=== PATIENT | male | born 1955 | race Two or more races ===

== ENCOUNTER 2020-03-30 13:00 | Emergency (ER) | payer OTHER, SELFPAY ==
[2020-03-30 13:18] VITALS: BP 184/87; PULSE 66; RESP 16; TEMP 36.6; O2SAT 95; BMI 24.3
--- NOTE | 2020-03-30 13:25 | XR_ITS ---
PROCEDURE: XR LUMBAR SPINE 2-3V CLINICAL INDICATION: Pain COMPARISON: No exams were available for comparison FINDINGS: There is normal alignment. Mild multilevel lumbar spondylosis is noted with small anterior osteophytes. There is mild wedging of L4 and minimal wedging of L3. The disc spaces are well preserved. Endplate osteophytes are present at L1-L2 L3 and L4. IMPRESSION: Multilevel lumbar spondylosis. There is mild wedging of L3 and L4 age indeterminate without obvious retropulsion. Dictated by: J Carlos Maldonado MD 03/30/2020 14:30 J Carlos Maldonado MD in [place] 03/30/2020 14:30
--- NOTE | 2020-03-30 13:26 | XR_ITS ---
PROCEDURE: XR THORACIC SPINE 2V CLINICAL INDICATION: Pain COMPARISON: No exams were available for comparison FINDINGS: There is minimal loss of height of the right aspect of T5 and the left aspect of T6 and the right aspect of T8 as seen on the frontal view. Anterior osteophytes are present at T11-T12 and L1. There is slight decrease in height anteriorly at T5 and T6. No lytic or blastic change. Other findings:There is mild degenerative disc disease IMPRESSION: Degenerative changes with slight decrease in height in several areas of the vertebral bodies which is age indeterminate and may be better evaluated with MRI if clinically warranted. No retropulsion or lytic or blastic change. Dictated by: JC arlos Maldonado MD 03/30/2020 14:26 J Carlos Maldonado MD in [place] 03/30/2020 14:26
--- NOTE | 2020-03-30 13:27 | XR_ITS ---
PROCEDURE: XR SACRUM COCCYX MIN 2V CLINICAL INDICATION: Pain COMPARISON: No exams were available for comparison FINDINGS: There is mild dorsal subluxation the 3rd segment the coccyx by proximally 3 mm. There is degenerative disc disease at L5-S1. Sacrum has an unremarkable appearance as do the SI joints. IMPRESSION: Mild dorsal subluxation of the 3rd segment of the coccyx age indeterminate otherwise negative Dictated by: J Carlos Maldonado MD 03/30/2020 14:22 J Carlos Maldonado MD in [place] 03/30/2020 14:22
--- NOTE | 2020-03-30 15:08 | HMH.EDGENADL ---
ED Disposition Clinical Impression: Lower abdominal pain Low back pain Qualifiers: Chronicity: unspecified Back pain laterality: bilateral Sciatica presence: without sciatica Qualified Code(s): M54.5 - Low back pain Disposition: Home, Self-Care Condition on Discharge: Good Instructions: DI for Low Back Pain, DI for Abdominal Pain-Adult Additional Instructions: Your liver enzymes are elevated. You should follow-up with your primary care doctor about this. Do not take Tylenol (acetaminophen). Avoid alcohol. On your x-rays of your back, you have vertebral bones and discs that have collapsed over time as well as arthritis. You should follow-up with your primary care doctor for this. They can do further evaluation such as an MRI. Prednisone as prescribed. Ibuprofen as prescribed for pain. You are being provided with a list of physicians available for follow-up of your condition. Please call a physician on this list to arrange a follow-up appointment as soon as possible. Additional instructions for BACK PAIN: See your physician as soon as possible for further evaluation. Return immediately if back pain becomes intolerable, or if fever, numbness or weakness of your legs, loss of control of your bowels or bladder. Additional instructions for ABDOMINAL PAIN: See your physician as soon as possible for further evaluation. Return immediately if worsening abdominal pain, vomiting, shortness of breath, fever, vomiting of blood or abdominal distention. Prescriptions: Ibuprofen [Ibuprofen 600mg Tab] 600 mg PO Q6HP PRN #20 tab PRN Reason: Moderate Pain Prescription Printed predniSONE [Prednisone 20mg Tab] 20 mg PO BID #10 tab Prescription Printed Referrals: PCP,No [Primary Care Provider] - - Critical Care Critical Care Time: No Attestation: On 03/30/20, the high probability of a clinically significant, sudden or life threatening deterioration of the following system(s) required my full and direct attention, intervention and personal management. The time I documented below is in addition to time spent performing reported procedures but includes the following listed in this critical care notation. Medical Decision Making - Tyler Inquiry Pt receiving controlled substance: No Vital Signs: 03/30/20 13:18 Temperature 98 F Temperature Source Oral Pulse Rate [Right Brachial] 66 Respiratory Rate 16 Blood Pressure [Right Arm] 184/87 H Blood Pressure Mean [Right Arm] 119 Blood Pressure Source [Right Arm] Automatic Cuff Blood Pressure Position [Right Arm] Sitting 02 Sat by Pulse Oximetry 95 Oxygen Delivery Method Room Air - Lab Data Lab results reviewed: Yes: I reviewed the patient's lab results. Lab Results 03/30/20 15:00: Urine Color Yellow, Urine Appearance Clear, Urine pH 6.0, Ur Specific [place] 1.025, Urine Protein Negative, Urine Glucose (UA) Negative, Urine Ketones Negative, Urine Blood Negative, Urine Nitrate Negative, Urine Bilirubin Negative, Urine Urobilinogen 0.2, Ur Leukocyte Esterase Negative, Urine RBC 3-5, Urine WBC 5-10, Ur Squamous Epith Cells 5-10, Urine Bacteria 2+, Hyaline Casts 3-5, Urine Mucus 2+ 03/30/20 15:20: WBC 11.9 H, RBC 4.81, Hgb 14.8, Hct 44.4, MCV 92.4, MCH 30.7, MCHC 33.2, RDW 14.4, Plt Count 240, MPV 8.0, Neut % (Auto) 73.8, Lymph % (Auto) 17.1, [place] % (Auto) 4.8, Eos % (Auto) 3.8, Baso % (Auto) 0.5, Neut # (Auto) 8.8 H, Lymph # (Auto) 2.0, [place] # (Auto) 0.6, Eos # (Auto) 0.5 H, Baso # (Auto) 0.1 03/30/20 15:20: Sodium 138, Potassium 4.8, Chloride 103, Carbon Dioxide 28, Anion Gap 11.8, BUN 18, Creatinine 0.70, Estimated Creat Clear 81, Estimated GFR 114, Est GFR ( Amer) 137, Glucose 103 H, Calcium 9.4, Total Bilirubin 0.5, AST 71 H, ALT 112 H, Alkaline Phosphatase 154 H, Total Protein 7.6, Albumin 4.7, Globulin 2.9, Albumin/Globulin Ratio 1.6, Amylase 128 H, Lipase 108 Result diagrams: 03/30/20 15:20 03/30/20 15:20 Orders (Tests/Meds): ED MEDICATIO
--- NOTE | 2020-03-30 15:09 | CT_ITS ---
PROCEDURE: CT ABDOMEN PELVIS W CON CLINICAL INDICATION: abdo and back pain Abdomen pain COMPARISON: No exams were available for comparison TECHNIQUE: IV Contrast: 75ML OPTIRAY 350 Oral Contrast None Axial images obtained with sagittal and coronal reformats. All CT scans at the facility use one or more dose reduction, viz: automated exposure control, ma/kV adjustment per patient size (including targeted exams where dose is matched to indication, i.e. head), or iterative reconstruction technique. FINDINGS: LOWER THORAX: There are mild atelectatic changes in the right lung base. ABDOMEN & PELVIS: Decreased attenuation is present along the falciform ligament of the liver inferiorly and may be due to fatty infiltration. The pancreas, gallbladder, spleen, adrenal glands, and kidneys have an unremarkable appearance. There are few scattered small periaortic lymph nodes. No renal or ureteral calculi. Motion artifact obscures fine detail. Bowel gas pattern is nonspecific. There are colonic diverticula but no evidence of diverticulitis. There are scattered air-fluid levels within nondistended small bowel which could be due to ileus or enteritis. The no evidence of appendicitis. No acute bony anomaly. IMPRESSION: Bowel gas pattern is nonspecific with scattered nondistended fluid-filled loops of small bowel cyst with air-fluid levels which could be due to enteritis. Exam is somewhat limited secondary to respiratory motion artifact Dictated by: J Carlos Maldonado MD 03/30/2020 16:23 J Carlos Maldonado MD in [place] 03/30/2020 16:23
[2020-03-30 15:12] LABS: Microscopic, Urine URINE MICROSCOPIC (MICROSCOPIC)
[2020-03-30 15:14] LABS: Appearance,Urine CLEAR (Clear); Bilirubin,Urine Negative (Negative); Blood, Urine Negative (Negative); Color,Urine YELLOW (Yellow); Glucose,Urine (UA) Negative (Negative); Ketones,Urine Negative (Negative); Leukocyte Esterase,Urine Negative (Negative); Nitrate,Urine Negative (Negative); Protein,Urine Negative (Negative); Specific Gravity, Urine 1.025 (1.005-1.030); Urobilinogen,Urine 0.2 EU/dl (0.2)
[2020-03-30 15:28] LABS: Bacteria,Urine 2+ /lpf; Mucus,Urine 2+ /lpf
[2020-03-30 15:32] LABS: Basophils # 0.1 K/mm3 (0-0.2); Basophils % 0.5 % (0.1-2.0); Eosinophils # 0.5 K/mm3 (0.0-0.4); Eosinophils % 3.8 % (0.1-12.0); Hematocrit 44.4 % (42.0-52.0); Hemoglobin 14.8 g/dL (14.1-18.0); Lymphocytes % 17.1 % (10-50); Mean Corpuscular HGB Conc 33.2 g/dL (31.8-35.4); Mean Corpuscular Hemoglobin 30.7 pg (27.0-31.2); Mean Corpuscular Volume 92.4 fl (80-94); Monocytes # 0.6 K/mm3 (0.1-1.0); Monocytes % 4.8 % (1.7-9.3); Neutrophils # 8.8 K/mm3 (1.8-7.8); Neutrophils % 73.8 % (37.0-80.0); Platelet Count 240 K/mm3 (142-424); Red Blood Count 4.81 M/mm3 (4.60-6.20); Red Cell Distribution Width 14.4 % (11.5-17.5); White Blood Count 11.9 K/mm3 (4.8-10.8)
[2020-03-30 15:33] LABS: Chloride 103 mmol/L (98-107); Sodium 138 mmol/L (136-145)
[2020-03-30 15:34] LABS: Potassium 4.8 mmoL/L (3.5-5.1)
[2020-03-30 15:36] LABS: Alanine Aminotransferase 112 U/L (12-78); Alkaline Phosphatase 154 U/L (38-126); Amylase 128 U/L (30-110); Anion Gap 11.8 mEq/L (5-15); Aspartate Amino Transferase 71 U/L (17-59); Bilirubin,Total 0.5 mg/dl (0.2-1.3); Blood Urea Nitrogen 18 mg/dl (9-20); Calcium 9.4 mg/dl (8.4-10.2); Carbon Dioxide 28 mmol/L (22.0-30.0); Creatinine Clearance Estimated 81 mL/min (50-200); Estimated Glomerular Filt Rate 114 ml/min (>60); GFR (African American) 137 ML/MIN (>60); Glucose 103 mg/dl (74-100); Lipase 108 U/L (23-300)
[2020-03-30 15:37] LABS: Albumin Level 4.7 g/dl (3.5-5.0); Albumin/Globulin Ratio 1.6 (1.1-1.8); Globulin 2.9 g/dL (1.3-3.2); Total Protein,Serum 7.6 g/dl (6.3-8.2)
[2020-03-30 18:07] VITALS: BP 165/74; PULSE 67; RESP 16; TEMP 36.8; O2SAT 98
== END 2020-03-30 18:08 | disposition home or self-care (01) ==
PROVIDERS: Emergency Provider Emergency Medicine
DX: R10.30 Lower abdominal pain, unspecified (principal); M54.5 Low back pain
CPT/HCPCS: 72070; 72100; 72220; 74177; 80053; 81001; 82150; 83690; 85025; 87086; 96374; 96375; 99283; Q9967

== ENCOUNTER 2021-01-25 12:35 | Emergency (ER) | payer OTHER, SELFPAY ==
[2021-01-25 12:35] VITALS: BP 135/82; PULSE 91; RESP 17; TEMP 36.8; O2SAT 95; BMI 22.9
--- NOTE | 2021-01-25 12:50 | HMH.EDGENADL ---
ED Disposition Clinical Impression: Atypical chest pain Disposition: Home, Self-Care Condition on Discharge: Fair Instructions: DI for Atypical Chest Pain, DI for Gastroesophageal Reflux Disease (GERD), DI for Chest Pain Additional Instructions: You have been evaluated for atypical chest pain. Possibly due to reflux. Please avoid tobacco and alcohol. Follow-up with a primary care doctor within 1 to 2 days for symptom recheck. Take Protonix. Return to the emergency department at once for any new or worsening symptoms, chest pain, shortness of breath, other concerns. Prescriptions: Pantoprazole Sodium [Protonix 40mg tablet] 40 mg PO DAILY #30 tab Transmission Status: Pending to [id number] Referrals: Provider,Referral, [Primary Care Provider] - Time of Disposition: 16:11 - Critical Care Critical Care Time: No Attestation: On 01/25/21, the high probability of a clinically significant, sudden or life threatening deterioration of the following system(s) required my full and direct attention, intervention and personal management. The time I documented below is in addition to time spent performing reported procedures but includes the following listed in this critical care notation. Medical Decision Making - Medical Records Medical records reviewed: Yes: I reviewed the patient's medical records. - Tyler Inquiry Pt receiving controlled substance: No Vital Signs: 01/25/21 12:35 Temperature 98.3 F Temperature Source Oral Pulse Rate [Right Radial] 91 H Respiratory Rate 17 Blood Pressure [Right Arm] 135/82 Blood Pressure Mean [Right Arm] 99 Blood Pressure Source [Right Arm] Automatic Cuff Blood Pressure Position [Right Arm] Sitting 02 Sat by Pulse Oximetry 95 Oxygen Delivery Method Room Air - Lab Data Lab Results 01/25/21 12:35: WBC 10.8, RBC 4.68, Hgb 14.4, Hct 43.8, MCV 93.5, MCH 30.7, MCHC 32.8, RDW 14.0, Plt Count 287, MPV 8.8, Neut % (Auto) 78.3, Lymph % (Auto) 14.4, [place] % (Auto) 5.0, Eos % (Auto) 1.9, Baso % (Auto) 0.5, Neut # (Auto) 8.4 H, Lymph # (Auto) 1.5, [place] # (Auto) 0.5, Eos # (Auto) 0.2, Baso # (Auto) 0.1 08/24/21 12:35: Sodium 142, Potassium 4.1, Chloride 107, Carbon Dioxide 25, Anion Gap 14.1, BUN 11, Creatinine 1.10, Estimated Creat Clear 69, Estimated GFR 67, Est GFR ( Amer) 81, Glucose 154 H, Calcium 9.0, Total Bilirubin 0.7, AST 38, ALT 26, Alkaline Phosphatase 101, Total Protein 7.2, Albumin 4.2, Globulin 3.0, Albumin/Globulin Ratio 1.4 01/25/21 12:35: Troponin I < 0.01, Lipase 67 01/25/21 12:35: Plasma/Serum Alcohol < 10 Result diagrams: 01/25/21 12:35 01/25/21 12:35 Orders (Tests/Meds): ED MEDICATIONS Discontinued Medications Generic Name Dose Route Start Last Admin Trade Name Freq PRN Reason Stop Dose Admin Aspirin 324 mg 01/25/21 12:54 01/25/21 13:02 Aspirin 81mg Chewable Tablet PO 01/25/21 12:55 324 mg ONCE ONE Administration Belladonna Alkaloids 60 ml 01/25/21 14:55 01/25/21 15:00 Gi Cocktail 60ml Udc PO 01/25/21 14:56 60 ml ONCE ONE Administration ORDERS Category Date Time Status Troponin I Q3H Lab 01/25/21 15:02 Received Troponin I Q3H Lab 01/25/21 19:00 Ordered Troponin I Stat Lab 01/25/21 14:55 Ordered - ECG Data Tracing #1 Sinus rhythm with ventricular rate of 83 bpm. QRS 92, QTc 423. Evidence of LVH. No ST segment elevation. - ZAMZAM Score for Non-Stemi Age of Patient: 60-69 years old Heart Rate: 70-89 bpm Systolic Blood Pressure: 120-139 mmhg Serum Creatinine: 0.40-0.79 mg/dl CHF [place] Class: I-No CHF Other Risk Factors: None Non-Stemi Risk Score: 105 Medical Decision Narrative: In summary this is a 66-year-old male presenting to the emergency department with chest pains. Patient clinically stable on arrival. Vital signs within normal limits. He admits to daily alcohol use, concern for gastritis, pancreatitis, peptic ulcer disease. Also concern for ACS, vasospasm.
--- NOTE | 2021-01-25 12:54 | XR_ITS ---
PROCEDURE: XR CHEST 2V CLINICAL HISTORY: chest pain COMPARISON: CT CT ABDOMEN PELVIS W CON from 03/30/2020 FINDINGS: The cardiomediastinal silhouette and pulmonary vascularity are within normal limits. There are mild atelectatic changes in the left lower lobe. The remaining lungs are clear. No acute bony abnormalities. IMPRESSION: Mild left basilar atelectasis Dictated by: J Carlos Maldonado MD 01/25/2021 13:24 J Carols Maldonado MD in [place] 01/25/2021 13:24
[2021-01-25 13:09] LABS: Basophils # 0.1 K/mm3 (0-0.2); Basophils % 0.5 % (0.1-2.0); Eosinophils # 0.2 K/mm3 (0.0-0.4); Eosinophils % 1.9 % (0.1-12.0); Hematocrit 43.8 % (42.0-52.0); Hemoglobin 14.4 g/dL (14.1-18.0); Lymphocytes # 1.5 K/mm3 (0.7-4.5); Lymphocytes % 14.4 % (10-50); Mean Corpuscular HGB Conc 32.8 g/dL (31.8-35.4); Mean Corpuscular Hemoglobin 30.7 pg (27.0-31.2); Mean Corpuscular Volume 93.5 fl (80-94); Mean Platelet Volume 8.8 fl (7.4-10.4); Monocytes # 0.5 K/mm3 (0.1-1.0); Neutrophils # 8.4 K/mm3 (1.8-7.8); Neutrophils % 78.3 % (37.0-80.0); Platelet Count 287 K/mm3 (142-424); Red Blood Count 4.68 M/mm3 (4.60-6.20); White Blood Count 10.8 K/mm3 (4.8-10.8)
[2021-01-25 13:19] LABS: Potassium 4.1 mmoL/L (3.5-5.1); Sodium 142 mmol/L (136-145)
[2021-01-25 13:21] LABS: Alanine Aminotransferase 26 U/L (12-78); Aspartate Amino Transferase 38 U/L (17-59); Blood Urea Nitrogen 11 mg/dl (9-20); Carbon Dioxide 25 mmol/L (22.0-30.0); Creatinine Clearance Estimated 69 mL/min (50-200); Estimated Glomerular Filt Rate 67 ml/min (>60); GFR (African American) 81 ML/MIN (>60); Lipase 67 U/L (23-300)
[2021-01-25 13:22] LABS: Albumin Level 4.2 g/dl (3.5-5.0); Albumin/Globulin Ratio 1.4 (1.1-1.8); Alkaline Phosphatase 101 U/L (38-126); Bilirubin,Total 0.7 mg/dl (0.2-1.3); Glucose 154 mg/dl (74-100); Total Protein,Serum 7.2 g/dl (6.3-8.2)
[2021-01-25 13:34] LABS: Troponin I < 0.01 ng/ml (0.00-0.034)
[2021-01-25 13:40] LABS: Anion Gap 14.1 mEq/L (5-15); Chloride 107 mmol/L (98-107)
[2021-01-25 13:48] LABS: Ethyl Alcohol < 10 mg/dl (0-10)
[2021-01-25 16:19] LABS: Troponin I < 0.01 ng/ml (0.00-0.034)
[2021-01-25 16:38] VITALS: BP 147/87; PULSE 61; RESP 18; TEMP 37.1; O2SAT 99
[2021-01-25 17:42] LABS: Troponin I < 0.01 ng/ml (0.00-0.034)
== END 2021-01-25 16:42 | disposition home or self-care (01) ==
PROVIDERS: Emergency Provider Emergency Medicine
DX: R07.89 Other chest pain (principal)
CPT/HCPCS: 36415; 71046; 80053; 83690; 84484; 85025; 99282

== ENCOUNTER 2022-01-07 01:49 | Emergency (ER) | payer OTHER, SELFPAY ==
[2022-01-07 01:59] VITALS: BP 149/84; PULSE 59; RESP 18; TEMP 36.6; O2SAT 99; BMI 25.0
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
[2022-01-07 02:10] VITALS: BP 128/65; PULSE 59; RESP 18; TEMP 36.8; O2SAT 99
--- NOTE | 2022-01-07 02:13 | PC.NURSE ---
Pt is speaking with limited Spanish speaking capabilities. As such, we used the hospital instructional technology specialist service per protocol. [employer] id [id number], instructional technology specialist Moses used for patient communication. Patient expressed that he had no medical complaints when asked via instructional technology specialist if he had any pain or concern. Pt states his only complaint is that he had too much to drink . Pt cleared by md as appropriate to be release to the [place] police department for incarceration as deemed appropriate.
== END 2022-01-07 02:16 | disposition home or self-care (01) ==
PROVIDERS: Emergency Provider Student in an Organized Health Care Education/Training Program
DX: F10.129 Alcohol abuse with intoxication, unspecified (principal); R10.13 Epigastric pain; Z79.1 Long term (current) use of non-steroidal anti-inflammatories (NSAID); Z79.52 Long term (current) use of systemic steroids; Z79.899 Other long term (current) drug therapy
CPT/HCPCS: 99283

== ENCOUNTER 2022-11-04 10:02 | Emergency (ER) | payer SELFPAY ==
[2022-11-04 10:03] VITALS: BP 185/74; PULSE 64; RESP 18; TEMP 36.7; O2SAT 99; BMI 26.5
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
--- NOTE | 2022-11-04 10:23 | PC.NURSE ---
DR TARIQ AT BEDSIDE
[2022-11-04 10:31] VITALS: BP 167/54; PULSE 66; RESP 20; O2SAT 96
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
--- NOTE | 2022-11-04 10:40 | PC.NURSE ---
PT TO CT
[2022-11-04 11:00] VITALS: BP 174/45; PULSE 70; RESP 18; O2SAT 96
--- NOTE | 2022-11-04 11:16 | PC.NURSE ---
ROUNDED ON PT, REPORTS PAIN SOME IMPROVED. NO NEEDS AT THIS TIME
[2022-11-04 11:30] VITALS: BP 171/72; PULSE 64; O2SAT 95
--- NOTE | 2022-11-04 11:32 | PC.NURSE ---
SPEAKING WITH MARÍA, DR MEDRANO
--- NOTE | 2022-11-04 11:38 | PC.NURSE ---
DOT HERNANDEZ wrote pt outpt order for MRI of T and L spine without contrast. Copy of order given, instructed pt friend who is the spare person at this time for pt that [facility] staff would be contacting pt to schedule MRI for pt. Have sent email to MRI staff about outpt order for given to pt.
--- NOTE | 2022-11-04 11:45 | PC.NURSE ---
DR TARIQ AT BEDSIDE TO UPDATE PT
[2022-11-04 11:57] VITALS: BP 171/72; PULSE 73; RESP 18; TEMP 36.6; O2SAT 97
== END 2022-11-04 11:57 | disposition home or self-care (01) ==
PROVIDERS: Emergency Provider Student in an Organized Health Care Education/Training Program; PCP Nurse Practitioner Family
DX: M54.41 Lumbago with sciatica, right side (principal)
CPT/HCPCS: 72131; 99284

== ENCOUNTER → 2022-11-07 13:42 | Outpatient (CLI) | payer SELFPAY ==
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
== END ==
LOC: RAD 13:42
PROVIDERS: PCP Nurse Practitioner Family; Visit Provider Nurse Practitioner Family
DX: M54.6 Pain in thoracic spine (principal); M54.50 Low back pain, unspecified
CPT/HCPCS: 72146; 72148; 76376